=== PATIENT | female | born 1975 | race Caucasian/White ===

== ENCOUNTER → 2022-04-10 02:34 | Outpatient (CLI) | payer BC, SELFPAY ==
--- NOTE | 2022-04-10 15:45 | DI.MAMMO_ITS ---
Exam(s) MAMMO SCREENING EXAM: MAMMO SCREENING CLINICAL HISTORY: screening TECHNIQUE: Mammograms were interpreted according to the usual protocol including computer analysis w ith CAD system, tomosynthesis and C-view imaging. COMPARISON: No exams were available for comparison. Prior exams have been requested but not yet rec eived FINDINGS: The breasts are composed of scattered fibroglandular densities, Breast Density category B. No suspicious masses or suspicious microcalcifications are seen. No skin thickening or abnormal axillary lymph nodes are seen. IMPRESSION: BI-RADS Category 1, Negative mammogram Yearly screening mammography is recommended. If the patient's prior exams become available, an addendum will be issued. Breast Density - Category B, scattered fibroglandular densities. A negative radiographic report should not delay biopsy if a dominant or clinically suspicious mass is present. Up to ten percent of cancers are not identified on mammography. A negative report may reinforce clinical impression. Adenosis and dense breasts may obscure an underlying neoplasm. False positive reports average 6 to 10%. Patient will receive a letter notifying them of these results.
== END ==
PROVIDERS: Visit Provider Nurse Practitioner Women's Health
DX: Z12.31 Encounter for screening mammogram for malignant neoplasm of breast (principal)
CPT/HCPCS: 77063; 77067

== ENCOUNTER → 2023-04-24 01:58 | Outpatient (CLI) | payer BC, SELFPAY ==
--- NOTE | 2023-04-24 07:00 | DI.MAMMO_ITS ---
Exam(s) MAMMO SCREENING EXAM: MAMMO SCREENING CLINICAL HISTORY: screening,Z12.39. TECHNIQUE: Bilateral full field digital CC and MLO mammographic images were obtained with 3D tomosyn thesis and utilizing computer aided detection (CAD). COMPARISON: Prior mammogram April 2022 was reviewed, this being the only prior in our PACS. FINDINGS: There has been no significant change in the appearance and distribution of the fibroglandular tissue. There are no CAD designations. There are no new spiculated masses nor malignant appearing microcalcification groups. Nodular density in upper medial aspect of the right breast is unchanged April 2000 and has appear ance of a probable benign intramammary lymph node. In the left breast there is a posterior inferior located skin mole, previously present. There is als o a stable nodule posteriorly measuring 4 x 3 mm which is probably a benign intramammary lymph node. An additional nodules noted posteriorly was not previously present but has appearance of a probable benign intramammary lymph node. Sys possibly that this may have been previously but not included in the field of view as it is up against the chest wall. This nodule does appear to contain some calcif ication. There is no significant architectural distortion nor skin thickening-retraction. IMPRESSION: 1. Stable benign-appearing right breast finding. 2. In addition to stable left breast findings it does appear to be a new nodule posteriorly up agains t the chest wall not evident on the prior mammogram of April 2022. There is possibly that this repr esents benign intramammary lymph node. Nevertheless, spot compression view and ultrasound recommende d. BI-RADS Category 0 - Assessment Incomplete: Need additional imaging evaluation Breast Density - Category C - Heterogeneously dense Breast density Category C or D implies that the patient has dense breast tissue. Dense breast tissue can make it harder to find cancer on a mammogram. Dense breast tissue is also associated with an incr eased risk of breast cancer. This information about the result of the mammogram report was provided to the patient to raise their awareness. Use this report when you speak with the patient about their risks for breast cancer, which includes their family history. At that time, you may recommend additional screening tests (Ultrasoun d or MRI) as these tests may add significant information. A negative radiographic report should not delay biopsy if a dominant or clinically suspicious mass is present. Up to ten percent of cancers are not identified on mammography. A negative report may reinforce clinical impression. Adenosis and dense breasts may obscure an underlying neoplasm. False positive reports average 6 to 10%. Patient will receive a letter notifying them of these results.
== END ==
PROVIDERS: PCP Nurse Practitioner Adult Health; Visit Provider Nurse Practitioner Adult Health
DX: Z12.31 Encounter for screening mammogram for malignant neoplasm of breast (principal)
CPT/HCPCS: 77063; 77067

== ENCOUNTER 2023-04-24 09:28 | Outpatient (REF) | payer BC, SELFPAY ==
--- NOTE | 2023-04-24 09:20 | PAPFT_PTH ---
PATIENT: Delma Cline LOC: [facility] U#:[id number] AGE/SX: 48/F ROOM: RE04/24/[address]: Karen Fajardo NP : 1975 BED: DIS: 04/24/2023 SPEC #: [id number] RECD: 04/24/23 13:06 STATUS: MALLORY SIDDIQUI #: [id number] ANUM: 04/24/23 09:[address]: Karen Fajardo NP DEPT: [facility] Cytology RECD BY: Jayla Carrizales ENTERED: 04/24/23 13:06 SP TYPE: PAPFT OTHR DR: Fanny Blevins APRN Tissues: 1 - CX/ENDOCX FOR PAP SMEARS Procedures: PAP THIN PREP/UVM Screening HPV DNA PROBE Comments: [id number]
== END 2023-04-24 09:29 | disposition home or self-care (01) ==
LOC: LBN 09:28
PROVIDERS: PCP Nurse Practitioner Adult Health; Visit Provider Nurse Practitioner Women's Health
DX: Z12.4 Encounter for screening for malignant neoplasm of cervix (principal); Z11.51 Encounter for screening for human papillomavirus (HPV)
CPT/HCPCS: 88142; 87624

== ENCOUNTER → 2023-05-04 00:59 | Outpatient (CLI) | payer BC, SELFPAY ==
--- NOTE | 2023-05-04 | DI.MAMMO_ITS ---
Exam(s) MAMMO SCREEN CALL BACK UNI EXAM: MAMMO SCREEN CALL BACK UNI CLINICAL HISTORY: F/U MAMMO, NEW NODULE LT BREAST TECHNIQUE: Spot compression views with tomographic imaging were performed. COMPARISON: 2021 and recent exam 24 April 2023. FINDINGS: No suspicious masses or suspicious microcalcifications are seen. No suspicious abnormality is seen on the additional views performed. The findings are consistent wit h a small intramammary lymph node. IMPRESSION: BI-RADS Category 1, Negative Yearly screening mammography is recommended. Breast Density - Category B, scattered fibroglandular densities.
== END ==
PROVIDERS: PCP Nurse Practitioner Adult Health; Visit Provider Nurse Practitioner Adult Health
DX: Z12.31 Encounter for screening mammogram for malignant neoplasm of breast (principal); R92.8 Other abnormal and inconclusive findings on diagnostic imaging of breast
CPT/HCPCS: 77063; 77067

== ENCOUNTER 2023-06-04 09:49 | Day surgery (SDC) | payer BC, SELFPAY ==
--- NOTE | 2023-06-03 21:14 | PDOC.DSDIS_ITS ---
Date of service: 06/04/23 Time of Service: 12:09 Discharge Plan Disposition Patient Disposition: Home Condition: Good Discharge Details Reason For Visit: screening colonoscopy Attending Provider: Jose Baker Primary Care Provider: Fanny Blevins Home Meds and New Rx's Prescriptions: Continued Probiotic 15 billion cell capsule, sprinkle 1 cap PO DAILY PRN Rx Instructions: do not crush/chew/cut; swallow whole OR may open and sprinkle in cold drink/food Discontinued bisacodyl [Dulcolax (bisacodyl)] 5 mg tablet,delayed release (DR/EC) 5 mg PO ONCE Qty: 4 0RF Rx Instructions: Colonoscopy Bowel Prep- Per Instructions polyethylene glycol 3350 17 gram/dose powder 238 g PO ONCE Qty: 238 0RF Rx Instructions: Colonoscopy Bowel Prep- Per Instructions Discharge Instructions Instructions: Hemorrhoids (GEN), Diverticulosis (GEN), Diverticulosis Diet (GEN) Additional Instructions: Previously, we were able to complete your colonoscopy today without any difficulty. Like we talked about before the procedure, you do in fact have some hemorrhoids. You also have some evidence of very mild early diverticulosis. Diverticula are weak spots in the colon wall that typically accumulate with age. I have attached some general information here regarding diverticulosis as well as hemorrhoids. I suspect that, 1, or maybe even both of these, are what triggered your Cologuard test. I think the safest plan of action is to follow- up with a repeat colonoscopy in 5 years. Especially with your mother's history of appendiceal cancer. If you have any questions in the meantime, please do not hesitate to call at any point. 1. If tolerated, consume a soft, low fiber diet for 1-2 days. 2[address] Do not drive, drink alcohol, operate machinery, make critical decisions, or do activities that require coordination or balance for 24 hours. 3. Because air was put into your colon during the procedure, expelling air from your rectum (passing gas or farting) is normal. 4. You may not have a bowel movement for 1-3 days because of the colonoscopy prep. This is normal. 5. Go directly to the emergency room if you notice any of the following: Develop chills (warm to touch), or if you have a thermometer and your temperature is above 101 Difficulty breathing or difficultly swallowing Persistent vomiting Severe abdominal pain, other than gas cramps Severe chest pain Black, tarry stools Any bleeding ? exceeding one tablespoon 6. Call your physician if the site where your intravenous was started becomes red, swollen, painful, and warm to touch. 7. Your physician has reviewed your pre-procedure medications. Please continue to take those medications as previously ordered. You will be given specific information/education regarding any changes to your medications before leaving. Activity:: Activity as Tolerated Diet:: As Tolerated Discharge Orders Discharge Orders: Discharge Order (Routine); Ordered 06/03/23 Ordered By: Jose Baker DS: Diagnosis Discharge Diagnosis (1) Positive colorectal cancer screening using Cologuard test: Status: Acute Asessment and Plan: Internal hemorrhoids, otherwise negative screening colonoscopy, based on positive Cologuard test, and family history, I recommend another colonoscopy in 5 years
--- NOTE | 2023-06-03 21:19 | COLE_ITS ---
Date of service: 06/04/23 Time of Service: 12:12 Colonoscopy Report Date of procedure: 06/04/23 Pre-op diagnosis general: screening colonoscopy Post-op diagnosis procedure note: other (Internal hemorrhoids, early diverticulosis) Procedure: Colonoscopy Surgeon: Jose Baker Anesthesia Type: General:No Airway Estimated blood loss (mL): 0 Pathology: none sent Complications: None Disposition: same day Indications: Delma is a 48 year old woman who needs a screening colonoscopy Prep: Miralax/Dulcolax Procedure Start Time: 10:34 Procedure End Time: 10:57 Retraction Time: 16 Findings: Hemorrhoids, diverticulosis Procedure Description: After the induction of monitored anesthetic care, and with the patient in left lateral decubitus position, I began by performing an external anorectal exam.? Perineum and skin were normal, as was the anal verge.? There are some external skin tags consistent with fibrosed hemorrhoids.? Next, I performed a digital rectal exam.? I did not appreciate any abnormal findings.? Next, I advanced a c olonoscope into the rectal vault.? I performed retroflexion.? There are grade 1 internal hemorrhoids.? Using insufflation, I then advanced the colonoscope beyond the rectal folds and into the sigmoid colon before advancing towards the cecum.? The quality of the prep was excellent.? The scope was noted to be in the cecum by identification of the ileocecal valve and appendiceal orifice.? I then began withdrawing the colonoscope using repeated irrigation as necessary for full evaluation of the colonic mucosa. Within the sigmoid colon, there were some mild dimpling of the colon wall, that seem consistent with early diverticulosis. Once the scope was withdrawn to the level of the rectum, great care was taken to examine portions of the rectal folds.? Finally, the scope was withdrawn and the patient was brought to the same-day surgery recovery unit as the anesthetic wore off. ?The findings and instructions were shared with the patient prior to discharge.
[2023-06-04 09:53] VITALS: BP 168/72; PULSE 82; RESP 20; TEMP 35.9; O2SAT 100
[2023-06-04] MEDS: Lactated Ringers 1,000 ML 80 ML IV (10:27)
--- NOTE | 2023-06-04 10:40 | W.ANESPRE ---
General Info Date of Service Date Performed: 06/04/23 Height: 5 ft 3.5 in Weight: 78.5 kg Body Mass Index (BMI): 30.2 Surgical Procedure: Operation Date: 06/04/23 11:20 Proposed Procedure Side Surgeon p Colonoscopy Jose Bkaer MD Meds Allergies and Home Medications Allergies Allergy/AdvReac Type Severity Reaction Status Date / Time Penicillins Allergy Intermediate Hives Verified 06/04/23 10:10 Home Medication Medication Instructions Recorded lactobacillus combo no.11 15 1 cap PO DAILY PRN 04/03/23 billion cell sprinkle capsule (Probiotic) Current Visit Medications: Current Medications Generic Name Dose Route Start Last Admin Trade Name Freq PRN Reason Stop Dose Admin Hyoscyamine Sulfate 0.125 mg 06/03/23 21:20 Hyoscyamine 0.125 Mg Sl/Oral/Chew SL 07/03/23 21:19 DIRECTED PRN Ringer's Solution 1,000 mls @ 80 mls/hr 06/04/23 06:00 06/04/23 10:27 IV 07/01/23 23:59 80 mls/hr INFUSION CONRADO Administration IV Miscellaneous Supplies 1 each 06/04/23 06:00 Iv Access IV 07/01/23 23:59 DIRECTED CONRADO Ondansetron HCl 4 mg 06/03/23 21:20 Ondansetron 4 Mg/2 Ml Vial IVP 07/03/23 21:19 Q4H PRN PRN Nausea / Vomiting Sodium Chloride 0 ml 06/04/23 06:00 Normal Saline Flush 10 Ml Syr IV 07/01/23 23:59 PRN PRN Sodium Chloride 0 ml 06/04/23 06:00 Normal Saline 10 Ml Vial IJ 07/01/23 23:59 DIRECTED PRN Sterile Water 0 ml 06/04/23 06:00 Water,Injection,Sterile 10 Ml Vial IJ 07/01/23 23:59 DIRECTED PRN PFSH Active Problems Active Problems: Problem Status Onset Code Positive colorectal cancer screening using Cologuard test ~05/2023 R19.5 Medical History Medical History No pertinent past medical history Surgical History Surgical History History of loop electrical excision procedure (LEEP) Done in . Normal paps since then Tobacco Smoking/Tobacco Use Status: Never Second hand exposure: No Alcohol Alcohol Intake: current Alcohol intake frequency: a few times a week Alcohol type: wine Details: 2-3 times a week 1- 2 at a time Substance Use Substance use: Rarely Substance use type: does not use Prental History History 2 Para 2 Hx # Term Pregnancies 2 Multiple births Hx # Pregnancies Ectopic pregnancies AB induced Hx Number of Living Children AB spontaneous Vital Signs and Lab Results Vital Signs Most Recent Vital Signs in EMR: Most Recent Vital Signs Temp Pulse Resp BP Pulse Ox 35.9 C L 82 20 168/72 H 100 06/04/23 09:53 06/04/23 09:53 06/04/23 09:53 06/04/23 09:53 06/04/23 09:53 Lab Results Blood Type / Crossmatch: No Data to Display Complete Blood Count: No Data to Display Complete Metabolic Panel: No Data to Display Liver Function Panel: No Data to Display Coagulation Panel: No Data to Display Cardiac Panel: No Data to Display Arterial Blood Gas: No Data to Display Venous Blood Gas: No Data to Display Pancreas Panel: No Data to Display Thyroid Panel: No Data to Display Infectious Disease: No Data to Display Blood Cultures: No Data to Display Toxicology Panel: No Data to Display Panel: No Data to Display Anesthesia Assessment and Plan Anesthesia History Personal History: No History of Anesthesia Complications Family History: No Family History of Anesthesia Complications Exercise Tolerance Exercise Tolerance: Metabolic Equivalents>4 Pertinent Negatives Pertinent Negatives: No Symptoms of GERD, No Major Cardiovascular Symptoms or Complaints and No Major Pulmonary Symptoms or Complaints Cardiac & Pulmonary Exam Cardiac Exam: Normal S1/S2 Heart Sounds Pulmonary Exam: Clear Bilateral Breath Sounds Implantable Cardiac Device Does patient have a Pacemaker or an ICD?: No Airway Exam Known Difficult Airway: No Mallampati Class: 1 Mouth Opening: Normal (> 3cm) Thyromental Distance: Greater than 3 cm Neck Range of Motion: Full ROM Neck Circumference: Normal Teeth Condition: Normal Dentition ASA Classification ASA Score: ASA 2 Emergency Case?: No NPO Status NPO Status: NPO Clears >2 hours, Solids >8 hours Status Status: Negative HCG Anesthesia Plan Resuscitation Status: Full Code Anesthesia Technique: General Anesthesia Airway Planned: Natural Airway Monitors Used: Standard Monitors
[2023-06-04 10:42] VITALS: BMI 30.2
[2023-06-04 12:01] VITALS: BP 128/78; PULSE 83; RESP 18; TEMP 36.5; O2SAT 98
[2023-06-04 12:15] VITALS: BP 123/98; PULSE 76; RESP 18; TEMP 36.6; O2SAT 99
--- NOTE | 2023-06-04 12:25 | W.ANESPOSTOP ---
Postoperative Evaluation Date, Time and Location Date Performed: 06/04/23 Time Performed: 12:25 Patient Location: Day Surgery Unit Vital Signs Most Recent Imported Vital Signs: Most Recent Vital Signs Temp Pulse Resp BP Pulse Ox 36.5 C 83 18 128/78 98 06/04/23 12:01 06/04/23 12:01 06/04/23 12:01 06/04/23 12:01 06/04/23 12:01 Assessment Mental Status: Awake (Alert & Oriented to Patient Baseline) Airway and Respiratory Function: Patent airway with normal (patient baseline) respiratory exam Cardiovascular Function: Hemodynamically Stable Hydration Status: Adequately Hydrated Nausea & Vomiting: No Nausea or Vomiting Pain: Pt. Denies Any Pain Peripheral Nerve Block: Patient did not receive a nerve block
== END 2023-06-04 12:39 | disposition home or self-care (01) ==
PROVIDERS: PCP Nurse Practitioner Adult Health; Visit Provider Surgery
PROC: 0DJD8ZZ Inspection of Lower Intestinal Tract, Via Natural or Artificial Opening Endoscopic (ICD-10-PCS; CPT 45378; principal; 2023-06-04 11:15)
DX: Z12.11 Encounter for screening for malignant neoplasm of colon (principal); K64.0 First degree hemorrhoids; R19.5 Other fecal abnormalities
CPT/HCPCS: 45378; 81025; J2704

== ENCOUNTER 2024-07-14 03:19 | Outpatient (CLI) | payer BC, SELFPAY ==
[2024-07-14 09:21] LABS: Anion Gap 11.8 mmol/L (3-11); BUN 11 mg/dL (7-18); CO2 24.2 mmol/L (21.0-32.0); CREATININE 0.7 mg/dL (0.55-1.02); Calcium 9.2 mg/dL (8.5-10.1); Calculated LDL 88 mg/dL (<100); Chloride 100 mmol/L (98-107); Cholesterol 198 mg/dL (<200); Estimated GFR 105.95 (mL/min/1.73m2); Glucose 87 mg/dL (74-106); HDL Cholesterol 90 mg/dL (40-60); Potassium 4.2 mmol/L (3.5-5.1); Sodium 136 mmol/L (136-145); Triglyceride 100 mg/dL (<150)
[2024-07-14 19:52] LABS: Hepatitis C Ab w Rflx HCV PCR Negative (Negative)
[2024-07-14 20:05] LABS: HIV-1/2 Ag & Ab Screen Negative (Negative)
== END 2024-07-14 03:20 | disposition home or self-care (01) ==
LOC: LBO 03:19
PROVIDERS: PCP Nurse Practitioner Adult Health; Visit Provider Nurse Practitioner Adult Health
DX: Z11.4 Encounter for screening for human immunodeficiency virus [HIV] (principal); Z11.59 Encounter for screening for other viral diseases; Z13.220 Encounter for screening for lipoid disorders; Z13.1 Encounter for screening for diabetes mellitus; Z13.0 Encounter for screening for diseases of the blood and blood-forming organs and certain disorders involving the immune mechanism
CPT/HCPCS: 36415; 80048; 80061; 86803; 87389